=== PATIENT | female | born 2005 | race Caucasian/White ===

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

== ENCOUNTER 2024-04-02 12:58 | Emergency (ER) | payer SELFPAY ==
[~2024-04-02] VITALS: Ht 160 cm; Wt 81.6 kg
[2024-04-02 13:04] VITALS: BP 135/78
[2024-04-02 13:15] VITALS: BP 123/77
[2024-04-02 13:30] VITALS: BP 117/77
[2024-04-02 13:45] VITALS: BP 127/81
[2024-04-02] MEDS ORDERED: PREDNISONE20 MG PO (13:51)
[2024-04-02] MEDS ORDERED: LEVOCETIRIZINE D5 MG PO (13:51)
[2024-04-02 14:00] VITALS: BP 139/82
[2024-04-02 14:07] VITALS: BP 139/82
== END 2024-04-02 14:13 | disposition home or self-care (01) | DRG 179 ==
LOC: ED 12:58
DX: U07.1 COVID-19 (principal); R05.9 Cough, unspecified; R09.81 Nasal congestion; R50.9 Fever, unspecified; R52 Pain, unspecified